=== PATIENT | female | born 1980 | race Caucasian/White ===

== ENCOUNTER 2021-10-28 16:56 | Emergency (ER) | payer MEDICAID ==
[~2021-10-28] VITALS: Ht 165.1 cm; Wt 90.7 kg
[2021-10-28] MEDS ORDERED: AMMONIA INHALANT 0.3mL AMPUL INH ONE (17:05)
[2021-10-28 17:22] VITALS: BP_SYST 126
[2021-10-28 18:35] LABS: BASOPHILS # (AUTO) 0.1 K/uL (0.0-0.2); BASOPHILS % (AUTO) 1.3 % (0.0-2.0); EOSINOPHILS # (AUTO) 0.1 K/uL (0.0-0.4); EOSINOPHILS % (AUTO) 0.7 % (0.0-4.0); HEMATOCRIT 37.4 % (36-48); HEMOGLOBIN 12.6 g/dL (12.0-16.0); LYMPHOCYTES # (AUTO) 3.1 K/uL (1.0-5.5); LYMPHOCYTES % (AUTO) 35.2 % (20.5-51.5); MEAN CORPUSCULAR HEMOGLOBIN 31 pg (27-31); MEAN CORPUSCULAR HGB CONC 34 % (32-36); MEAN CORPUSCULAR VOLUME 91 fL (79.0-98.0); MONOCYTES # (AUTO) 0.4 K/uL (0.0-1.0); MONOCYTES % (AUTO) 4.9 % (1.7-9.3); NEUTROPHILS # (AUTO) 5.1 K/uL (1.8-7.7); NEUTROPHILS % (AUTO) 57.9 % (40.0-70.0); PLATELET COUNT (AUTO) 412 K/uL (130-430); RED BLOOD CELL COUNT(AUTO) 4.09 MIL/uL (4.2-6.2); RED CELL DISTRIBUTION WIDTH 17.7 % (9.0-15.0); WHITE BLOOD COUNT (AUTO) 8.8 K/uL (4.8-10.8)
[2021-10-28 18:41] LABS: ANION GAP 12 (5-15); CHLORIDE 107 mmol/L (98-107); CREATININE 0.59 mg/dL (0.55-1.30); GLUCOSE 96 mg/dL (70-99); POTASSIUM 3.4 mmol/L (3.5-5.1); SODIUM SERUM 144 mmol/L (136-145); UREA NITROGEN, BLOOD 10 mg/dL (8-21)
[2021-10-28 18:49] LABS: ALANINE AMINOTRANSFERASE 40 U/L (12-78); ALBUMIN 3.1 g/dL (3.4-4.8); ASPARTATE AMINOTRANSFERASE 25 U/L (10-37); TOTAL BILIRUBIN 0.1 mg/dL (0.0-1.0)
[2021-10-28 18:52] LABS: ACETAMINOPHEN < 1 ug/mL (1-30); ALCOHOL, BLOOD 520 mg/dL (<10); GFR AFRICAN AMERICAN 145 mL/min (>90)
--- NOTE | 2021-10-28 19:01 | NUR ---
Pt BIBA ACLS due to finding pt passed out next to a [employer] store. Pt does not answer to questions. Is alert and Pupils PERLLA but not answering to questions.VSS.
--- NOTE | 2021-10-28 20:22 | NUR ---
PT EN ROUTE TO CT. VSS. 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 EOTH PRESENT. PLAN IS TO [facility].
[2021-10-28] MEDS ORDERED: NACL 0.9% 1,000 ML IV ONE (21:45)
--- NOTE | 2021-10-28 22:24 | NUR ---
pt opening her eyes. sluring her speech, denies any family that can pick her up. pt on continuous caridac monitoring. vss wctm
[2021-10-28] MEDS ORDERED: LORazepam 2 MG/ML VIAL ONE (23:53)
[2021-10-29] MEDS ORDERED: HALOPERIDOL LACTATE 5 MG/ML VIAL ONE (00:25)
[2021-10-29] MEDS ORDERED: HALOPERIDOL LACTATE 5 MG/ML VIAL IM ONE (00:30)
[2021-10-29] MEDS ORDERED: LORazepam 2 MG/ML VIAL IVP ONE ×2 (00:30)
--- NOTE | 2021-10-29 00:34 | NUR ---
pt verbalized her name and . registration made aware. pt attempted to give me her boyfriend's phone number but was unsuccessful. pt attempted to walk out of facility, pt redirected back to bed. Pt says, "i dont care how im getting home. i am leaving and ill figure it out". MD made aware, new orders received and carried out. 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 wctm
--- NOTE | 2021-10-29 06:02 | NUR ---
pt awake and talking full complete sentences. pt able to ambulate without assistance; MD aware will dc pt. will get patient ride home. IV DC. VSS
--- NOTE | 2021-10-29 06:12 | NUR ---
pt's boyfriend called back and states he is on his way to tack picker pt.
[2021-10-29 06:13] VITALS: BP_SYST 104
--- NOTE | 2021-10-29 06:17 | NUR ---
pt unable to provide urine sample
== END 2021-10-29 06:13 | disposition home or self-care (01) ==
LOC: SED 16:56 → EDBD 16:56 → SED 10-29 06:13
DX: F10.129 Alcohol abuse with intoxication, unspecified (principal); E87.6 Hypokalemia; I10 Essential (primary) hypertension; Y90.6 Blood alcohol level of 120-199 mg/100 ml; Z79.899 Other long term (current) drug therapy
CPT/HCPCS: 99285; 96374; 70450; 96361; 80053; 84703; 85025; 36415; 76376; 96376; 96372; G0482; J2060 ×2; J7030; J1630; G0480; G0481